=== PATIENT | female | born 1970 | race Caucasian/White ===

== ENCOUNTER 2018-04-13 10:51 | Observation (INO) | payer MEDICARE, MEDICAID ==
[2018-04-13] MEDS ORDERED: Nitroglycerin 2% Ointment 1 INCH/1 GM Packet ONE (11:53)
[2018-04-13] MEDS ORDERED: ISOVUE-370 76%-LOCM 1 ML ONE (11:59)
[2018-04-13 12:08] LABS: Bilirubin Negative (Negative); Blood, Urine Negative (Negative); Clarity CLEAR (Clear); Glucose, Urine (Dipstick) Negative (Negative); Leukocyte Negative (Negative); Nitrite Negative (Negative); Protein, Urine (Dipstick) Negative (Neg-Trace); Specific Gravity, Urine 1.006 (1.002-1.036); Urobilinogen 0.2 mg/dL (0.2-1.0)
--- NOTE | 2018-04-13 12:11 | RAD ---
CHEST 1 VIEW: Date: 04/13/18 HISTORY: Chest pain. FINDINGS: No comparison. Cardiac silhouette is magnified by projection. Pulmonary vasculature is unremarkable. Mediastinum mid line with left subclavian Port-A-Cath. No lobar consolidation or evidence of pneumothorax. Rightward convex curvature of the thoracic spine. Metallic clips overlie the left axilla. IMPRESSION: No active cardiopulmonary abnormalities are demonstrated. POS: VIRGEN
[2018-04-13 12:15] LABS: Pregnancy Test - Urine (BHCG) Negative (Negative); Specific Gravity 1.006 (1.002-1.036)
[2018-04-13 12:16] LABS: Pregu Control Background? CLEAR/WHITE (CLR/WHITE); Pregu Control Bar Appear? YES (CONTROL BAR)
[2018-04-13 12:18] LABS: #Eosinphils 0.1 thou/uL (0.0-0.7); #Lymphocytes 1.7 thou/uL (1.20-3.40); #Monocytes 0.5 thou/uL (0.11-0.59); #Neutrophils 5.2 thou/uL (1.40-6.50); %Basophils 0.3 % (0.0-1.0); %Eosinophils 1.1 % (0.0-10.0); %Lymphocytes 23.2 % (21.0-51.0); %Monocytes 6.1 % (0.0-10.0); %Neutrophils 69.3 % (42.0-75.0); Hemoglobin 14.3 g/dL (12.0-16.0); Mean Corpuscular Volume 85.4 fL (78.0-98.0); Mean Platelet Volume 7.2 fL (7.4-10.4); Platelet Count 240 thou/uL (130-400); RBC Distribution Width 12.9 % (11.5-14.5); Red Blood Cell (RBC) Count 4.93 mill/uL (4.20-5.40); White Blood Cell (WBC) Count 7.5 thou/uL (4.8-10.8)
[2018-04-13 12:23] LABS: Amphetamine Not Detected (NotDetected); Barbiturates Screen Not Detected (NotDetected); Benzodiazepine Screen Not Detected (NotDetected); Cocaine Metabolite Screen Not Detected (NotDetected); Medtox Control Line Valid? VALID (VALID); Medtox Reader # READER 1; Methadone Not Detected (NotDetected); Methamphetamine Not Detected (NotDetected); Opiate Screen Not Detected (NotDetected); Oxycodone Screen Not Detected (NotDetected); Phencyclidine (PCP) Not Detected (NotDetected); THC/Cannabinoid Screen Not Detected (NotDetected); Tricyclic Screen Not Detected (NotDetected)
[2018-04-13 12:39] LABS: ALT (SGPT) 7 U/L (8-55); AST (SGOT) 16 U/L (5-34); Albumin 4.5 g/dL (3.5-5.0); Alkaline Phosphatase 106 U/L (40-150); Anion Gap 17 mmol/L (10-20); BUN (Urea Nitrogen) 10 mg/dL (7.0-18.7); Bilirubin, Total 0.7 mg/dL (0.2-1.2); CK (CPK) 190 U/L (29-168); Calc. Creatinine Clearance 0 mL/min (70-130); Calcium 9.7 mg/dL (7.8-10.44); Carbon Dioxide 18 mmol/L (22-29); Chloride 104 mmol/L (98-107); Estimated GFR-MDRD 85; Globulin 3.6 g/dL (2.4-3.5); Glucose 70 mg/dL (70-105); Lipase 31 U/L (8-78); Potassium 3.9 mmol/L (3.5-5.1); Protein, Total 8.1 g/dL (6.0-8.3); Sodium 135 mmol/L (136-145)
[2018-04-13 12:43] LABS: CKMB 1.1 ng/mL (0-6.6); Troponin I Less than 0.010 ng/mL (< 0.028)
[2018-04-13 15:28] LABS: Troponin I Less than 0.010 ng/mL (< 0.028)
[2018-04-13] MEDS ORDERED: Calcium Carbonate 500 MG ChewTAB PO PRN (16:09)
[2018-04-13] MEDS ORDERED: Phenergan/Codeine 10-6.25mg/5ml UDCUP PO PRN (16:09)
[2018-04-13] MEDS ORDERED: Acetaminophen 325 MG TAB PO PRN (16:09)
[2018-04-13] MEDS ORDERED: Senokot 8.6 MG TAB PO PRN (16:09)
[2018-04-13] MEDS ORDERED: Ondansetron HCl/PF 4 MG/2 ML Vial IVP PRN (16:09)
[2018-04-13] MEDS ORDERED: Nitroglycerin 0.4 MG TAB (25 Tab Bottle) SL PRN (16:09)
[2018-04-13] MEDS ORDERED: Lorazepam 1 MG TAB PO PRN (16:09)
[2018-04-13] MEDS ORDERED: traMADol HCl 50 MG TAB PO PRN (16:09)
[2018-04-13] MEDS ORDERED: Bisacodyl 5 MG TAB PO PRN (16:09)
[2018-04-13] MEDS ORDERED: hydrALAZINE 20 MG/ML VIAL SLOW IVP PRN (16:09)
[2018-04-13] MEDS ORDERED: Mag-Al 1200 mg/1200 mg/30 ML UDCUP PO PRN (16:09)
[2018-04-13] MEDS ORDERED: Benzonatate 100 MG CAP PO PRN (16:09)
[2018-04-13] MEDS ORDERED: cloNIDine 0.1 MG TAB PO PRN (16:09)
--- NOTE | 2018-04-13 17:05 | HP ---
DATE OF ADMISSION: 04/13/2018 CHIEF COMPLAINT: Chest pain and abdominal pain. PRIMARY CARE PHYSICIAN: None. HISTORY OF PRESENTING ILLNESS: Ms. Ambriz is a 47-year-old female with history of cholelithiasis s tatus post cholecystectomy as well as bipolar disorder and history of seizure disorder who presented to the emergency room with above-mentioned complaint. History is mainly obtained by the patient hers elf. Electronic medical records have been reviewed. Case has been discussed with the admitting ER [facility], Dr. Dukes. Ms. Ambriz is being brought in by EMS today. History as per her and her is that they are c urrently homeless for the last few days. They were in [place], living in a motel, but they do not hav e any more money so they were evacuated from the motel and currently living on the streets for the la st few days. She has been having some chest pain in the left side of the chest without any significa nt radiation for the last 5 or 6 days. She also reports left upper quadrant abdominal pain for the s myles amount of time. She is tender to palpation quite significantly in the left chest. She reports t hat the pain is sharp, stabbing and is constant. She might be constipated, but she cannot really rec all when was the last bowel movement. The pain is relieved by lying down and remaining still, but is exacerbated with walking. She never has had any history of cardiac disease as far as she can tell, but has never been risk stratified either. She has no history of drug, tobacco or alcohol abuse, but some family history of coronary artery disease. She has a history of bipolar illness and depression , but currently is not medicated. She is taking her Keppra as prescribed by a neurologist in [place]. Upon presentation to the emergency room, she was hemodynamically stable with a blood pressure of 147/ 99, heart rate of 90, saturating 100% on room air. She underwent a general workup including blood wo rk. Her CBC and serum chemistries are unremarkable. Cardiac enzymes, troponin less than 0.010 x2. She had mild elevation of creatinine kinase at 190. Urinalysis is unremarkable. Urine kimmy t negative. Urine drug screen negative. Chest x-ray unremarkable. She was given aspirin and is cur rently now being admitted for ACS workup and abdominal pain workup. The patient does give history of irregular periods and perimenopausal symptoms. PAST MEDICAL HISTORY: 1. Seizure disorder. 2. Bipolar illness. 3. GERD. PAST SURGICAL HISTORY: Cholecystectomy. PSYCHIATRIC HISTORY: Bipolar illness and depression. SOCIAL HISTORY: She smokes cigarettes occasionally. No history of drug or alcohol abuse. FAMILY HISTORY: Cannot recall any significant family history of stroke or coronary artery disease. ALLERGIES: No known medication allergies. CURRENT MEDICATIONS: Keppra 1500 mg p.o. b.i.d. REVIEW OF SYSTEMS: A 12-point review of systems was done. It is negative except for those mentioned in the history and physical. LABORATORY DATA: CBC, serum chemistries are reviewed. Serum chemistries with sodium of 135, bicarbo galen of 18, creatinine kinase 190, otherwise unremarkable. Lipase is normal. Cardiac enzymes normal . Urine test normal. Otherwise, as above. IMAGING: Chest x-ray by my review has no evidence to suggest any pleural effusion, edema or infiltra te. A 12-lead EKG by my review shows normal sinus rhythm without any acute ST or T-wave changes. PHYSICAL EXAMINATION: VITAL SIGNS: Upon presentation, blood pressure 147/99, heart rate 90, saturating 100% on room air, r espirations 19, afebrile, temperature 98. GENERAL: No acute distress. She appears disheveled, but awake, alert and oriented x3. is a t bedside. Hirsutism is noticed. HEENT: Mucous membrane is slightly dry. No oropharyngeal exudate or erythema. Head is normocephali c, atraumatic. Pupils equal and reactive to light and accommodation. NECK: Neck is supple without any lymphadenopathy, JVD or bruit. CHEST: Clear to auscultation without any wheezing, rales or rhonchi. Rhythm is regular without any murmurs or gallops. She has tender to palpation in the left anterior chest and in the sternal area, quite significant. No obvious bruises or trauma noticed. ABDOMEN: Obese, mildly distended, soft, nontender, nondistended. No hepatosplenomegaly. No guardin g, rebound or rigidity. EXTREMITIES: Free of any cyanosis, clubbing or edema. NEUROLOGIC: Noticed. SKIN: Free of any rashes or bruises, feel warm and dry to touch. PSYCHIATRIC: Normal affect. IMPRESSION AND PLAN: 1. Chest pain, likely musculoskeletal as evidenced by tenderness to palpation and elevated CPK. How ever, the patient has never been risk stratified. We will go ahead and obtain a stress test for furt her workup and continue to trend serial cardiac enzymes. Continue with the dose of aspirin for now a nd obtain a lipid panel as well. Alternative causes include gastroesophageal reflux disease. She wi ll be started on Pepcid b.i.d. Also obtain a CT scan of the abdomen and pelvis to rule out any abdom inal causes with radiation to the chest. She is currently hemodynamically stable. 2. Mild rhabdomyolysis, started on normal saline and repeat CPK in the morning. 3. Abdominal pain, most likely secondary to constipation. She will be started on p.r.n. laxatives a nd stool softeners and we will obtain a CT scan of the abdomen and pelvis with contrast. 4. Gastroesophageal reflux disease. Start her on Pepcid b.i.d. 5. History of seizure disorder. No breakthrough seizures as per the patient. We will continue with home dose of Keppra for now. 6. Deep venous thrombosis and gastrointestinal prophylaxis. 7. History of bipolar illness. No suicidal or homicidal ideation at this time. DISPOSITION: Ms. Ambriz is currently being admitted to the hospital for chest pain and abdominal p ain. Estimated length of stay is less than 2 midnights at this time. Further management will depend upon her clinical course.
[2018-04-13 17:38] LABS: Troponin I Less than 0.010 ng/mL (< 0.028)
[2018-04-13] MEDS: Sodium Chloride 0.9% 1,000 ML IV SCH (20:11)
--- NOTE | 2018-04-13 21:21 | CT ---
CT ABDOMEN AND PELVIS WITH ORAL AND IV CONTRAST: HISTORY: Left upper quadrant abdominal pain. FINDINGS: The lung bases are clear. The patient is post cholecystectomy. No free air, free fluid, or lymphade nopathy is seen in the abdomen or pelvis. The liver, spleen, pancreas, adrenal glands, and left kidn ey are normal. There are subcentimeter cysts in the right kidney. The small bowel loops are not abnormally dilated. A normal appearing appendix is present. There is fecal material in the colon and rectum. The patient appears to be post hysterectomy. There is a 4 c m left adnexal cystic mass, likely ovarian. IMPRESSION: 1. No evidence of acute process. 2. A 4 cm left adnexal cystic mass, likely ovarian. Further evaluation with pelvic ultrasound is re commended. POS: VIRGEN
[2018-04-13] MEDS: Famotidine 20 MG TAB PO SCH (21:22)
[2018-04-13] MEDS: levETIRAcetam 500 MG TAB PO SCH (21:23)
[2018-04-13] MEDS: HYDROcodone/Acetaminophen 5/325 mg Tablet PO PRN (21:23)
[2018-04-14] MEDS: HYDROcodone/Acetaminophen 5/325 mg Tablet PO PRN ×4 (01:52→18:35)
[2018-04-14] MEDS: Sodium Chloride 0.9% 1,000 ML IV SCH ×2 (06:12→16:01)
[2018-04-14 06:35] LABS: Anion Gap 10 mmol/L (10-20); BUN (Urea Nitrogen) 6 mg/dL (7.0-18.7); Calc. Creatinine Clearance 142 mL/min (70-130); Calcium 8.2 mg/dL (7.8-10.44); Carbon Dioxide 23 mmol/L (22-29); Chloride 109 mmol/L (98-107); Cholesterol 148 mg/dl (< 200 Desired); Estimated GFR-MDRD Greater than 90; Glucose 85 mg/dL (70-105); HDL Cholesterol 50 mg/dL (>60 Neg Risk); LDL Cholesterol, Calculated 84 mg/dL; Potassium 3.8 mmol/L (3.5-5.1); Sodium 138 mmol/L (136-145); Triglycerides 71 mg/dL (Less than 150)
[2018-04-14] MEDS: Enoxaparin Sodium 40 MG/0.4 ML SYRINGE SC SCH (09:49)
[2018-04-14] MEDS: Famotidine 20 MG TAB PO SCH ×2 (09:49→20:31)
[2018-04-14] MEDS: Aspirin 81 mg Enteric Coated Tablet PO SCH (09:49)
[2018-04-14] MEDS: levETIRAcetam 500 MG TAB PO SCH ×2 (09:49→20:31)
[2018-04-14 12:31] VITALS: BMI 31.6
[2018-04-14] MEDS ORDERED: ADENOSINE 60 MG/20 ML VIAL ONE (13:17)
--- NOTE | 2018-04-14 15:24 | NM ---
NUCLEAR MEDICINE CARDIAC MYOCARDIAL PERFUSION SPECT EJECTION FRACTION STUDY WALL MOTION CINE: Date: 04/14/18 HISTORY: 47-year-old female with family history of coronary artery disease. Smoker. Chest pain. TECHNIQUE: Number of days: 1 Rest study: Tc99m sestamibi (Cardiolite) dose: 9.2 mCi Pharmacologic stress: adenosine dose: 44 mg Stress study: Tc99m sestamibi (Cardiolite) dose: 27.9 mCi FINDINGS: CARDIAC (MYOCARDIAL PERFUSION) SPECT Distribution of sestamibi is homogeneous throughout the left ventricle, with no fixed or reversible m yocardial perfusion defects. EJECTION FRACTION STUDY EF = 59% WALL MOTION CINE The left ventricular wall motion is normal. There is normal systolic wall thickening. IMPRESSION: Normal. bharath[] POS: VIRGEN
[2018-04-15] MEDS: HYDROcodone/Acetaminophen 5/325 mg Tablet PO PRN ×2 (00:17→08:03)
[2018-04-15 07:59] VITALS: BP 136/78; TEMP 98.7
[2018-04-15] MEDS: levETIRAcetam 500 MG TAB PO SCH (08:02)
[2018-04-15] MEDS: Enoxaparin Sodium 40 MG/0.4 ML SYRINGE SC SCH (08:03)
[2018-04-15] MEDS: Famotidine 20 MG TAB PO SCH (08:03)
[2018-04-15] MEDS: Aspirin 81 mg Enteric Coated Tablet PO SCH (08:03)
--- NOTE | 2018-04-15 12:26 | DIS ---
DATE OF ADMISSION: 04/13/2018 DATE OF DISCHARGE: 04/15/2018 The patient was discharged on 04/14/2018 but the discharge was held due to social issues. DISCHARGE DIAGNOSES: 1. Chest pain, atypical, acute coronary syndrome ruled out. 2. History of seizure disorder. 3. History of bipolar disorder. DISCHARGE MEDICATIONS: Keppra 1500 mg p.o. b.i.d. PROCEDURES DONE IN THE HOSPITAL: 1. CT scan of the abdomen and pelvis with oral and IV contrast which shows no acute processes. A sm all 4 cm left ovarian cyst is noted. 2. Nuclear medicine stress test, which is unremarkable. No evidence of fixed or reversible ischemia with an ejection fraction of 59%. PRIMARY CARE PHYSICIAN: None. HISTORY OF PRESENTING ILLNESS: Ms. Ambriz is a 47-year-old female who is currently homeless with p ast medical history of bipolar illness and seizure disorder, who called the EMS for chest pain and ab dominal pain. Upon presentation, she was hemodynamically stable with normal cardiac enzymes and EKG. She was admitted for further evaluation. Please see admission history and physical dictated by julia adler for further detail. She was started on aspirin and was admitted to telemetry unit. HOSPITAL COURSE: The patient had vague symptoms of abdominal discomfort and chest discomfort which w as reproducible. She has never had any risk stratification done so she underwent nuclear medicine st ress test which was unremarkable. Because of persistent complaints of abdominal pain, she had a CT s can of the abdomen done which was also negative. Serial cardiac enzymes were less than 0.010 for tro ponin x3. Lipid panel was checked was unremarkable. Urinalysis normal. Urine test normal . Urine drug screen normal. She was discharged yesterday, but could not go as she and her homeless. Social workers and [employer] managers helped to get them to a motel and arranged transportation and she is being discharged th is morning. She was seen and examined prior to discharge. PHYSICAL EXAMINATION: This morning, VITAL SIGNS: Temperature 98.7, heart rate 84, respirations 20, saturating 99% on room air, blood pre ssure 136/78. GENERAL: No acute distress, awake, alert, oriented x3. CHEST: Clear to auscultation without any wheezing, rales or rhonchi. CARDIAC: Rhythm is regular without any murmurs or gallops. At this time, the patient seemed to be exaggerating the symptoms as she was honestly not trying to le ave the hospital and go back out on the streets. Reassurance was provided and I appreciate all the h elp of the patient case manager have provided in placing this patient in the motel.
--- NOTE | 2018-04-20 14:03 | STRESS ---
Acquisition Time: 2018-04-14 11:54:47 Total Exercise Time: 00:04:00 Test Indications: CHEST PAIN Medications: Protocol: ADENOSINE Max HR: 108 BPM 61% of Pred: 175 BPM Max BP: 126/086 mmHG Max Work Load: 1.0 METS RESTING ECG: NORMAL SINUS RHYTHM AT 72 BPM SYMPTOMS: DYSPNEA ON EXERTION NORMAL BP RESPONSE ECTOPY: NONE ECG STRESS: NO SIGNIFICANT CHANGES INTERPRETATION: AWAIT NUCLEAR IMAGES FOR DEFINITIVE DIAGNOSIS Confirmed by DADA RICKS ([id number]), assignment desk editor SANTOS PENNY ([id number]) on 04/20/2018 2:02:35 PM Referred By: MD Marline RAMIREZ Confirmed By:DADA RICKS
== END 2018-04-15 12:59 | disposition home or self-care (01) ==
LOC: ERS 10:51 → ERHOLD 13:54 → 2NO 15:47
PROVIDERS: ADMIT Internal Medicine; ATTEND Internal Medicine
DX: R07.89 Other chest pain (principal); R10.9 Unspecified abdominal pain; G40.909 Epilepsy, unspecified, not intractable, without status epilepticus; F31.9 Bipolar disorder, unspecified; K21.9 Gastro-esophageal reflux disease without esophagitis; F17.210 Nicotine dependence, cigarettes, uncomplicated; M62.82 Rhabdomyolysis; Z79.899 Other long term (current) drug therapy
CPT/HCPCS: 71045; 74177; 78452; 80048; 80053; 80061; 80306; 81003; 81025; 82550; 82553; 83690; 84484 ×2; 85025; 93005; 93017; 96361 ×2; 96372 ×2; 96374; 96375; 97139 ×2; 99285; A9500; G0378 ×2; 36415; J0153; J1650; J2270; J2405